=== PATIENT | male | born 1985 | race Caucasian/White ===

== ENCOUNTER 2017-04-06 17:59 | Emergency (ER) | payer OTHER ==
--- NOTE | ~2017-04-06 | CT4 ---
[facility] A Service of [facility] RADIOLOGY TEXT RESULTS PATIENT: SAURAV TUCKER LOCATION: [facility] : 81 UNIT #: [id number] AGE: [address]: Walter Isidro MD SEX: M ORDER DR: [id number] [facility] [address] [place], [place] [address] [id number] MR#: [id number] #: [id number] NAME: SAURAV TUCKER : 1985 SEX: M STUDY DATE/TIME: 04/06/2017 22:05 UNIT: [facility] ROOM: STUDY DESCRIPTION: CT Abd and Pelv Wo Cont Attending Physician: Walter Isidro M.D. Ordering Physician: Walter Isidro M.D. Primary Care Physician: No Primary Care Physician MEDICAL IMAGING REPORT This report is preliminary unless electronic signature is present EXAM Abdomen and pelvis CT. DATE OF EXAM 04/06/2017, 22:05. INDICATIONS Lower abdominal pain and groin pain with hematuria that started 1 month ago, worsening over time. Pain currently rates 10 out of 10. TECHNIQUE Axial noncontrast images were obtained through the abdomen and pelvis. Multiplanar reformats were obtained. COMPARISON No comparison. This CT exam was performed with one or more of the following radiation dose reduction techniques: automatic exposure control, adjustment of mA and/or kV according to patient size, and iterative reconstruction. FINDINGS ABDOMEN: The lung bases are clear. Gallbladder is normal. There is a tiny nonobstructing stone in the lower pole of the left kidney. There is also a 3 mm nonobstructing stone in the proximal left ureter. No other renal or ureteral stones are identified. There is fatty infiltration of the liver. Unenhanced solid organs are otherwise normal. No free fluid is seen. The unopacified GI tract is normal. PELVIS: The appendix is normal. The remainder of the unopacified GI tract is normal as well. There are no lower ureteral stones. The bladder is normal. There is no free fluid. [facility] A Service [facility] RADIOLOGY TEXT RESULTS PATIENT: SAURAV TUCKER LOCATION: [facility] : 81 UNIT #: [id number] AGE: [address]: Walter Isidro MD SEX: M ORDER DR: IMPRESSION 1. 3 mm nonobstructing stone in the proximal left ureter. There is also a tiny nonobstructing stone in the lower pole of the left kidney. 2. Normal unopacified GI tract including the appendix. 3. Fatty infiltration of the liver. Dictated by... Walter Ochoa Jr., M.D. THIS IS AN ELECTRONICALLY VERIFIED REPORT Walter Ochoa Jr., M.D. at 04/07/2017 5:34 AM GISSELL/amadeo TD: 04/06/2017 23:16 JOB #: [id number] MEDICAL IMAGING REPORT Page 1 of 1 COPY
[2017-04-06 21:02] LABS: URINE SOURCE CLEAN CATCH
[2017-04-06 21:08] LABS: BASOPHIL# 0.1 X10e3 (0-0.3); BASOPHIL% 1.1 % (0-2.5); EOSINOPHIL# 0.1 X10e3 (0-0.7); EOSINOPHIL% 1.4 % (0.0-7.0); HEMATOCRIT 50.2 % (38.0-50.0); LYMPHOCYTE# 3.5 X10e3 (1.0-3.5); LYMPHOCYTE% 39.1 % (17.0-45.0); MEAN CELL VOLUME 90.6 FL (83-96); MEAN CORPUSCULAR HEMOGLOBIN 30.6 PG (28-34); MEAN CORPUSCULAR HGB CONC 33.8 g/dL (30-36); MEAN PLATELET VOLUME 8.4 FL (6.5-11.5); MONOCYTE# 0.7 X10e3 (0-1.0); MONOCYTE% 7.8 % (3.0-12.0); NEUTROPHIL# 4.5 X10e3 (1.5-7.1); NEUTROPHIL% 50.6 % (40-75); PLATELET COUNT 235 X10e3 (140-420); RED BLOOD COUNT 5.54 X10e (3.90-5.60); RED CELL DISTRIBUTION WIDTH 13.9 % (11.0-15.5)
[2017-04-06 21:24] LABS: DIFF IND NO
[2017-04-06 21:38] LABS: BUN/CREATININE RATIO 15.83; CALCIUM SERUM 9.8 mg/dL (8.4-10.2); CREATININE SERUM 1.2 mg/dL (0.6-1.4)
[2017-04-06 21:44] LABS: URINE APPEARANCE CLEAR; URINE BILIRUBIN NEG (NEG); URINE BLOOD TRACE (NEG); URINE COLOR YELLOW; URINE GLUCOSE NEG (NEG); URINE KETONE NEG (NEG); URINE LEUKOCYTE ESTERASE NEG (NEG); URINE NITRATE NEG (NEG); URINE PH 5.5 (5-8); URINE PROTEIN NEG (NEG); URINE SPECIFIC GRAVITY 1.023 (1.003-1.035)
[2017-04-06 21:47] LABS: URINE BACTERIA AUWI NEG (NEGATIVE); URINE SQUAMOUS EPITHELIAL CELL NONE SEEN /[HPF]; UWBCS1 AUWI 0-2 (0-5)
[2017-04-06 21:52] LABS: CULTURE INDICATED? NO
== END 2017-04-06 23:04 | disposition home or self-care (01) ==
LOC: CED 17:59
PROVIDERS: Emergency Medicine
DX: N20.1 Calculus of ureter (principal); F17.200 Nicotine dependence, unspecified, uncomplicated
CPT/HCPCS: 36415; 74176; 80048; 81003; 85025; 96361; 96374; 99284; J1885